=== PATIENT | female | born 1960 | race Two or more races ===

== ENCOUNTER 2017-06-22 10:00 | Emergency (ER) | payer BC, OTHER ==
[~2017-06-22] VITALS: Ht 160 cm; Wt 59.0 kg
--- NOTE | 2017-06-22 10:10 | NUR ---
pt is in room #1b. dr church evaluated the pt.
[2017-06-22] MEDS ORDERED: BENZONATATE 100 MG CAPSULE PO ONE (10:15)
[2017-06-22] MEDS ORDERED: ALBUTEROL SULFATE 2.5 MG/3 ML NEBU NEB ONE (10:15)
[2017-06-22] MEDS ORDERED: HYDROCODONE BIT/HOMATROPINE 5 ML UDC PO ONE (10:15)
[2017-06-22] MEDS ORDERED: HYDROCODONE BIT/HOMATROPINE 5 ML UDC ONE (10:20)
[2017-06-22] MEDS ORDERED: BENZONATATE 100 MG CAPSULE ONE (10:21)
[2017-06-22] MEDS ORDERED: ALBUTEROL SULFATE 2.5 MG/3 ML NEBU ONE (10:24)
[2017-06-22 10:52] VITALS: BP 129/88
== END 2017-06-22 10:52 | disposition home or self-care (01) ==
LOC: ER 10:02
DX: J20.8 Acute bronchitis due to other specified organisms (principal); B96.89 Other specified bacterial agents as the cause of diseases classified elsewhere
CPT/HCPCS: 71045; A4663

== ENCOUNTER 2017-06-25 15:00 | Emergency (ER) | payer BC, OTHER ==
[~2017-06-25] VITALS: Ht 154.9 cm; Wt 59.0 kg
[2017-06-25] MEDS ORDERED: IPRATROPIUM BROMIDE 0.5 MG/2.5 ML NEBU ONE (15:26)
[2017-06-25] MEDS ORDERED: ALBUTEROL SULFATE 2.5 MG/ 0.5 ML NEBU ONE (15:26)
[2017-06-25] MEDS ORDERED: ALBUTEROL SULFATE 2.5 MG/3 ML NEBU NEB ONE (15:30)
[2017-06-25] MEDS ORDERED: IPRATROPIUM BROMIDE 0.5 MG/2.5 ML NEBU NEB ONE (15:30)
--- NOTE | 2017-06-25 16:17 | NUR ---
Patient discharged to home in stable conditon. Written and verbal after care instructions given to patient. Patient verbalizes understanding of instructions.
== END 2017-06-25 16:19 | disposition home or self-care (01) ==
LOC: ER 15:00
DX: J98.01 Acute bronchospasm (principal)
CPT/HCPCS: A4663; J3590

== ENCOUNTER 2020-03-31 13:52 | Emergency (ER) | payer BC, OTHER ==
[~2020-03-31] VITALS: Ht 154.9 cm; Wt 59.0 kg
--- NOTE | 2020-03-31 14:38 | NUR ---
PT WAS D/C BY WITH VERBAL ACI.
== END 2020-03-31 14:39 | disposition home or self-care (01) ==
LOC: ER 13:52
DX: R05 Cough (principal); Z20.828 Contact with and (suspected) exposure to other viral communicable diseases
CPT/HCPCS: 87426; 99283; U0003; A4663

== ENCOUNTER 2020-07-11 11:46 | Emergency (ER) | payer BC, OTHER ==
[~2020-07-11] VITALS: Ht 157.5 cm; Wt 65.8 kg
[2020-07-11] MEDS: ONDANSETRON 4 MG/2 ML VIAL IV ONE (12:11)
[2020-07-11] MEDS: IV NORMAL SALINE 1000 ML BAG IV ONE (12:11)
[2020-07-11 12:14] LABS: BASOPHILS # (AUTO) 0.1 K/uL (0.0-8.0); BASOPHILS % (AUTO) 1.3 % (0.0-2.0); EOSINOPHILS # (AUTO) 0.1 K/uL (0.0-0.7); EOSINOPHILS % (AUTO) 1.4 % (0.0-7.0); HEMATOCRIT 39.8 % (31.2-41.9); HEMOGLOBIN 13.3 g/dL (10.9-14.3); LYMPHOCYTES # (AUTO) 2.7 K/uL (20.0-40.0); LYMPHOCYTES % (AUTO) 39.7 % (20.5-51.5); MEAN CORPUSCULAR HEMOGLOBIN 26.7 uug (24.7-32.8); MEAN CORPUSCULAR HGB CONC 33 g/dL (32.3-35.6); MEAN CORPUSCULAR VOLUME 80.1 fL (75.5-95.3); MONOCYTES # (AUTO) 0.6 K/uL (2.0-10.0); NEUTROPHILS # (AUTO) 3.3 K/uL (1.8-8.9); NEUTROPHILS % (AUTO) 48.6 % (38.5-71.5); PLATELET COUNT (AUTO) 281 K/uL (179-408); RED BLOOD CELL COUNT(AUTO) 4.98 MIL/uL (3.63-4.92); WHITE BLOOD COUNT (AUTO) 6.8 K/uL (3.8-11.8)
[2020-07-11] MEDS ORDERED: ONDANSETRON 4 MG/2 ML VIAL ONE (12:14)
[2020-07-11 12:23] LABS: CREATININE 0.8 mg/dL (0.6-1.3); POTASSIUM 3.7 mmol/L (3.5-5.1)
[2020-07-11 12:37] LABS: BILIRUBIN,DIRECT 0.1 mg/dL (0.0-0.2)
[2020-07-11 12:52] LABS: BILIRUBIN,TOTAL 0.3 mg/dL (0.2-1.0)
[2020-07-11 13:12] VITALS: BP 139/69
[2020-07-11] MEDS ORDERED: ONDA4TAB11 PO (13:25)
--- NOTE | 2020-07-11 13:28 | NUR ---
Patient discharged to home in stable condition. Written and verbal after care instructions given. Patient verbalizes understanding of instructions. Stressed follow up or return to ER for worsening s/s.pt walks in steady gait. pt accompanied by daughter. pt and daughter understand that the pt needs to follow up with dr. donaldo caceres, pt own pmd.
== END 2020-07-11 13:31 | disposition home or self-care (01) ==
LOC: ER 11:46
DX: R51.9 Headache, unspecified (principal); R55 Syncope and collapse
CPT/HCPCS: 36415; 70450; 71045; 80048; 80076; 84484; 85025; 93005; 96361; 96374; 99285; J2405; 70030-TC; A4663; J7030

== ENCOUNTER 2021-11-04 09:13 | Emergency (ER) | payer BC, OTHER ==
[~2021-11-04] VITALS: Ht 157.5 cm; Wt 70.3 kg
[~2021-11-04 09:13] MED LIST: ONDA4TAB11 PO
--- NOTE | 2021-11-04 09:42 | NUR ---
PT IS IN ROOM #2B. DR HALEY EVALUATED THE PT.
[2021-11-04] MEDS ORDERED: KETOROLAC TROMETHAMINE 15 MG INJ IM ONE (09:45)
[2021-11-04] MEDS ORDERED: KETOROLAC TROMETHAMINE 15 MG INJ ONE (09:46)
--- NOTE | 2021-11-04 11:07 | NUR ---
PT WAS D/C'd TO HOME D/C INSTRUCTIONS GIVEN TO THE PT BY DR MOHAMUD.
[2021-11-04 11:08] VITALS: BP 136/84
== END 2021-11-04 11:08 | disposition home or self-care (01) ==
LOC: ER 09:15
DX: M54.50 Low back pain, unspecified (principal); G89.29 Other chronic pain
CPT/HCPCS: 99283; 96372; J1885; A4663

== ENCOUNTER 2022-03-25 16:33 | Emergency (ER) | payer BC, OTHER ==
[~2022-03-25] VITALS: Ht 160 cm; Wt 64.9 kg
[2022-03-25] MEDS ORDERED: OSEL75CA PO (17:28)
[2022-03-25 17:51] VITALS: BP 132/80
--- NOTE | 2022-03-25 17:52 | NUR ---
Patient presented to the ER with complaints of coughing. Patient examined by MD. Patient discharge package given and explained. Patient departed ambulatory and in stable condition.
--- NOTE | 2022-03-25 18:47 | NUR ---
Left message on pt's home number to call back here for the test results (she needs to know she is Covid positive).
== END 2022-03-25 17:57 | disposition home or self-care (01) ==
LOC: ER 16:37
DX: U07.1 COVID-19 (principal)
CPT/HCPCS: 87400; A4663

== ENCOUNTER 2023-04-06 08:37 | Emergency (ER) | payer BC, OTHER ==
[~2023-04-06] VITALS: Ht 157.5 cm; Wt 64.9 kg
[~2023-04-06 08:37] MED LIST changes: +OSEL75CA PO
[2023-04-06] MEDS ORDERED: diphenhydrAMINE 50 MG/1 ML VIAL IV ONE (09:45)
[2023-04-06] MEDS ORDERED: METOCLOPRAMIDE HCL 10 MG/2 ML VIAL IV ONE (09:45)
[2023-04-06] MEDS ORDERED: KETOROLAC TROMETHAMINE 30 MG INJ IVP ONE (09:45)
[2023-04-06] MEDS ORDERED: METOCLOPRAMIDE HCL 10 MG/2 ML VIAL ONE (09:48)
[2023-04-06] MEDS ORDERED: KETOROLAC TROMETHAMINE 30 MG INJ ONE (09:48)
[2023-04-06] MEDS ORDERED: diphenhydrAMINE 50 MG/1 ML VIAL ONE (09:49)
[2023-04-06 10:18] LABS: BASOPHILS # (AUTO) 0.1 K/UL (0.0-0.2); EOSINOPHILS # (AUTO) 0.1 K/uL (0.0-0.7); EOSINOPHILS % (AUTO) 1.7 % (0.0-7.0); HEMATOCRIT 41.8 % (31.2-41.9); HEMOGLOBIN 14.4 g/dL (10.9-14.3); LYMPHOCYTES # (AUTO) 2.9 K/uL (0.8-4.8); LYMPHOCYTES % (AUTO) 36.1 % (20.5-51.5); MEAN CORPUSCULAR HEMOGLOBIN 29.7 uug (24.7-32.8); MEAN CORPUSCULAR HGB CONC 35 g/dL (32.3-35.6); MEAN CORPUSCULAR VOLUME 86.2 fL (75.5-95.3); MONOCYTES # (AUTO) 0.6 K/uL (0.1-1.30); MONOCYTES % (AUTO) 7.7 % (0.0-11.0); NEUTROPHILS # (AUTO) 4.3 K/uL (1.8-8.9); NEUTROPHILS % (AUTO) 53.5 % (38.5-71.5); PLATELET COUNT (AUTO) 285 K/uL (179-408); RED BLOOD CELL COUNT(AUTO) 4.84 MIL/uL (3.63-4.92); RED CELL DISTRIBUTION WIDTH 13.9 % (12.3-17.7); WHITE BLOOD COUNT (AUTO) 8.1 K/uL (3.8-11.8)
[2023-04-06 10:23] LABS: DIFFERENTIAL COMMENT 1
[2023-04-06 10:29] VITALS: O2SAT 99
[2023-04-06 10:33] LABS: CREATININE 0.7 mg/dL (0.6-1.3); POTASSIUM 3.8 mmol/L (3.5-5.1)
[2023-04-06] MEDS ORDERED: NAPR-1164 PO (11:46)
[2023-04-06] MEDS ORDERED: METO-295 PO (11:46)
[2023-04-06] MEDS ORDERED: DIPH25CA83 PO (11:46)
== END 2023-04-06 12:01 | disposition home or self-care (01) ==
LOC: ER 08:39
DX: G43.909 Migraine, unspecified, not intractable, without status migrainosus (principal); Z79.899 Other long term (current) drug therapy; Z86.16 Personal history of COVID-19
CPT/HCPCS: 99284; 96374; 96375; 80048; 82607; 83735; 85025; 85651; 36415; J1200; J1885; J2765; J7040; A4606; A4663

== ENCOUNTER 2024-07-19 18:05 | Emergency (ER) | payer BC, OTHER ==
[~2024-07-19] VITALS: Ht 157.5 cm; Wt 59.0 kg
[~2024-07-19 18:05] MED LIST changes: +DIPH25CA83 PO; +METO-295 PO; +NAPR-1164 PO
[2024-07-19 20:02] VITALS: BP 120/68; TEMP 98.1; O2SAT 99
== END 2024-07-19 19:56 | disposition home or self-care (01) ==
LOC: ER 18:05
DX: L23.9 Allergic contact dermatitis, unspecified cause (principal); Z86.16 Personal history of COVID-19; Z88.7 Allergy status to serum and vaccine; Z86.69 Personal history of other diseases of the nervous system and sense organs; Z87.39 Personal history of other diseases of the musculoskeletal system and connective tissue
CPT/HCPCS: A4606; A4663